=== PATIENT | male | born 1955 | race Caucasian/White ===

== ENCOUNTER 2020-11-08 16:20 | Emergency (ER) | payer MEDICARE, OTHER ==
[~2020-11-08 16:20] MED LIST: IBU600 MG PO; KEFLEX CAP 500500 MG PO; TESSALON PERLE100 MG PO; VENTOLIN HFA 66.7 GM INH; VIBRAMYCIN100 MG PO
[2020-11-08 19:05] LABS: HEMOGLOBIN 17.7 gm/dl (14.0-17.5); RED BLOOD COUNT 5.67 M/UL (4.20-5.50); WHITE BLOOD COUNT 12.4 K/UL (4.5-11.0)
[2020-11-08 19:18] LABS: BUN/CREATININE RATIO 13 (0-10)
[2020-11-08] MEDS ORDERED: CEFUROXIME500 MG PO (22:57)
[2020-11-08] MEDS ORDERED: TESSALON PERLE100 MG PO (22:57)
== END 2020-11-08 23:08 | disposition home or self-care (01) ==
LOC: ER1 16:20
PROVIDERS: Preventive Medicine Occupational Medicine
DX: R05 Cough (principal); R30.0 Dysuria; R10.9 Unspecified abdominal pain; R11.2 Nausea with vomiting, unspecified; J44.9 Chronic obstructive pulmonary disease, unspecified; F17.210 Nicotine dependence, cigarettes, uncomplicated; Z20.822 Contact with and (suspected) exposure to COVID-19
CPT/HCPCS: 0240U; 36600; 71045; 80053; 81001; 82550; 82553; 82803; 83690; 83874; 84484; 85025; 85652; 86140; 87086; 93005; 94664; 96374; 96375; 99284; C9113; J0696; J2405

== ENCOUNTER → 2021-02-18 | Outpatient (CLI) | payer MEDICARE, OTHER ==
[~2021-02-18] MED LIST changes: +CEFUROXIME500 MG PO
== END ==
LOC: HEART 5 14:34
DX: R06.02 Shortness of breath (principal)
CPT/HCPCS: 94060; 94729